=== PATIENT | male | born 1930 | race Caucasian/White ===

== ENCOUNTER 2017-01-23 05:56 | Inpatient (IN) | payer OTHER, BC ==
--- NOTE | 2017-01-23 06:42 | PDOC ---
History of Present Illness - General Chief Complaint: Shortness of Breath Stated Complaint: DIFFICULTY BREATHING Time Seen by Provider: 01/23/17 06:41 History Source: Patient Exam Limitations: No Limitations - History of Present Illness Initial Comments: 01/23/17 06:46 The patient is an 86 year old male with a significant past medical history of HTN, HLD, CAD, CHF, A.fib (on Eliquis), porcine aortic valve replacement and chronic LBBB, who presents to the emergency department with difficulty breathing for the past 2 days. He states that he has noticed orthopnea and dyspnea on exertion for the past 2 days. Last night, however, at 2 AM, he woke up with a feeling of pressure in his chest and dyspnea at rest. He denies accompanying nausea, palpitations, diaphoresis. The symptoms lasted for approximately 3 hours until EMS arrived and administered oxygen. He states that he feels completely asymptomatic at this point. He is noncompliant with his daily weights. He is fully compliant with his medications. He is fully compliant with his diet. He denies fever, chills, sweats, lower extremity edema. His primary care physician is Dr. Spears. He did not take his medications today. 01/23/17 06:57 01/23/17 07:06 Past History - Past Medical History Allergies/Adverse Reactions: Allergies Allergy/AdvReac Type Severity Reaction Status Date / Time carvedilol [From Coreg] Allergy Hives Verified 01/23/17 06:06 Home Medications: Ambulatory Orders Apixaban [Eliquis] 5 mg PO DAILY 01/20/16 Furosemide [Lasix -] 40 mg PO DAILY #30 tablet 01/23/16 Metoprolol Succinate [Toprol XL -] 12.5 mg PO DAILY #30 tab.sr.24h 02/07/16 Quinapril HCl [Accupril -] 20 mg PO DAILY #30 tablet 02/07/16 Cardiac Disorders: Yes HTN: Yes Hypercholesterolemia: Yes - Surgical History Cardiac Surgery: Yes (TRIPLE BYPASS, PIGS VALVE) - Immunization History Immunization Up to Date: Yes - Psycho/Social/Smoking Cessation Hx Anxiety: No Suicidal Ideation: No Smoking History: Never smoked Have you smoked in the past 12 months: No Cigars Per Day: 0 Information on smoking cessation initiated: No Hx Alcohol Use: No Drug/Substance Use Hx: No Substance Use Type: None Hx Substance Use Treatment: No Review of Systems - Review of Systems Comments:: 01/23/17 06:59 CONSTITUTIONAL: Present: Generalized weakness, malaise Absent: fever, chills, diaphoresis, loss of appetite HEENT: Absent: rhinorrhea, nasal congestion, throat pain, throat swelling, difficulty swallowing, mouth swelling, ear pain, eye pain, visual Changes CARDIOVASCULAR: Present: Chest pressure Absent: loss of consciousness, palpitations, irregular heart rate, peripheral edema RESPIRATORY: Present: cough, shortness of breath, dyspnea with exertion, orthopnea, Absent: wheezing, stridor, hemoptysis GASTROINTESTINAL: Absent: abdominal pain, abdominal distension, nausea, vomiting, diarrhea, constipation, melena, hematochezia GENITOURINARY: Absent: dysuria, frequency, urgency, hesitancy, hematuria, flank pain, genital pain MUSCULOSKELETAL: Absent: myalgia, arthralgia, joint swelling SKIN: Absent: rash, itching, pallor HEMATOLOGIC/IMMUNOLOGIC: Absent: easy bleeding, easy bruising, lymphadenopathy, frequent infections ENDOCRINE: Absent: unexplained weight gain, unexplained weight loss, heat intolerance, cold intolerance NEUROLOGIC: Absent: headache, focal weakness or paresthesias, dizziness, unsteady gait, seizure, mental status changes, bladder or bowel incontinence PSYCHIATRIC: Absent: anxiety, depression, suicidal or homicidal ideation, hallucinations. *Physical Exam - Vital Signs Last Vital Signs Temp Pulse Resp BP Pulse Ox 98.3 F 79 20 149/82 92 L 01/23/17 06:06 01/23/17 06:28 01/23/17 06:28 01/23/17 06:28 01/23/17 06:28 - Physical Exam Comments: 01/23/17 07:00 GENERAL: Well developed, well nourished. Awake and alert. No acute distress. HEENT: Normocephalic, atraumatic. PERRLA, EOMI. No conjunctival pallor. Sclera are non- icteric. Moist mucous membranes. Oropharynx is clear. NECK: Supple. Full ROM. No JVD. Carotid pulses 2+ and symmetric, without bruits. No thyromegaly. No lymphadenopathy. CARDIOVASCULAR: Distant heart sounds. Regular rate and rhythm. No murmurs, rubs, or gallops. Distal pulses are 2+ and symmetric. PULMONARY: Bibasilar crackles. No evidence of respiratory distress. No wheezing or rhonchi. ABDOMINAL: Soft. Non-tender. Non-distended. No rebound or guarding. No organomegaly. Normoactive bowel sounds. MUSCULOSKELETAL Normal range of motion at all joints. No bony deformities or tenderness. No CVA tenderness. EXTREMITIES: Trace pitting edema of the bilateral lower extremities No cyanosis. No clubbing. No edema. No calf tenderness. SKIN: Warm and dry. Normal capillary refill. No rashes. No jaundice. NEUROLOGICAL: Alert, awake, appropriate. Cranial nerves 2-12 intact. No deficits to light touch and temperature in face, upper extremities and lower extremities. No motor deficits in the in face, upper extremities and lower extremities. Normoreflexic in the upper and lower extremities. Normal speech. Toes are down- going bilaterally. Gait is normal without ataxia. PSYCHIATRIC: Cooperative. Good eye contact. Appropriate mood and affect. ED Treatment Course - LABORATORY CBC & Chemistry Diagram: 01/23/17 06:44 Medical Decision Making - Medical Decision Making 01/23/17 06:50 The patient is well-appearing and in no acute distress His symptoms of progressive dyspnea and an episode of dyspnea at rest accompaniend by chest pressure this morning are concerning for acute coronary syndrome Will obtain stat EKG Will obtain stat labs Will administer ASA 162mg 01/23/17 07:01 EKG: Normal sinus rhythm at 72, left axis deviation, left anterior hemiblock, left bundle branch block, inverted T waves in 1, aVL, V6, no Sgarboso criteria 01/23/17 07:08 Chest x-ray emergency Department interpretation: Increased interstitial markings bilaterally, potentially consistent with pulmonary vascular congestion There is some asymmetry, with the dentist area of infiltrate in the right lower lobe He denies fever I think pneumonia is unlikely Will administer IV Lasix Labs pending I anticipate admission 01/23/17 09:01 Labs noted CBC has not been developed I have asked the lab to develop it The patient feels better I spoke with his primary care physician, who requested admission to the hospitalist service Clinical impression: Acute exacerbation of congestive heart failure Chest pain, possible acute coronary syndrome Case discussed in detail with admitting provider including history, physical exam and ancillary studies. Admitting physician has assumed care for the patient, will follow all pending diagnostics and will complete the evaluation and treatment. 01/23/17 09:04 Chest x-ray official reading noted: We'll administer single dose of IV Levaquin *DC/Admit/Observation/Transfer Diagnosis at time of Disposition: Acute congestive heart failure, Chest pain - Discharge Dispostion Admit: Yes
[2017-01-23] MEDS ORDERED: SODIUM CHLORIDE 1,000 ML IV STA (06:44)
[2017-01-23] MEDS ORDERED: ASPIRIN 81 MG CHEWABLE TABLETS PO ONE (07:06)
[2017-01-23] MEDS ORDERED: FUROSEMIDE 40 MG/4 ML INJECTABLE VIAL IVPUSH ONE (07:06)
[2017-01-23 07:14] LABS: VENOUS BLOOD GAS HCO3 24.6 meq/L (19-25); VENOUS PH 7.42 (7.32-7.42)
[2017-01-23 07:41] LABS: ALBUMIN 3.7 g/dl (3.4-5.0); ANION GAP 8 (8-16); BILIRUBIN,TOTAL 1.9 mg/dL (0.2-1.0); CALCIUM 8.8 mg/dL (8.5-10.1); CO2 26 mmol/L (21-32); GLUCOSE,RANDOM 125 mg/dL (74-106); SGOT/AST 19 U/L (15-37); SGPT/ALT 15 U/L (12-78); TOT PROT 7.3 g/dl (6.4-8.2)
[2017-01-23 07:44] LABS: ALK PHOS 105 U/L (45-117); TROPONIN I 0.02 ng/ml (0.00-0.05)
[2017-01-23 08:28] LABS: INR 1.34 (0.82-1.09); PROTHROMBIN TIME (PATIENT) 14.8 SEC (9.98-11.88)
[2017-01-23 08:31] LABS: ACTIVATED PTT 31.7 SECONDS (26.9-34.4)
[2017-01-23] MEDS ORDERED: ASPIRIN 81 MG CHEWABLE TABLETS ONE (08:54)
[2017-01-23] MEDS ORDERED: FUROSEMIDE 40 MG/4 ML INJECTABLE VIAL ONE ×2 (08:54→16:23)
[2017-01-23 09:33] LABS: BASOPHIL 0.5 % (0-2.0); EOSINOPHIL 0.1 % (0-4.5); MCH 27.8 pg (25.7-33.7); MCHC 32.4 g/dl (32.0-35.9); MEAN CELL VOLUME 85.6 fl (80-96); MEAN PLT VOLUME 9.7 fl (7.5-11.1); NEUTROPHILS 88.7 % (42.8-82.8); PLATELET COUNT 118 K/MM3 (134-434); RDW 14.1 % (11.9-15.9); WHITE BLOOD COUNT 17.5 K/mm3 (4.0-10.0)
[2017-01-23] MEDS ORDERED: LEVOFLOXACIN 750 MG IVPB 150 ML IVPB ONE (09:43)
[2017-01-23 10:24] LABS: URINE APPEARANCE CLEAR; URINE BILIRUBIN NEGATIVE (NEGATIVE); URINE BLOOD NEGATIVE (NEGATIVE); URINE COLOR STRAW; URINE GLUCOSE (UA) NEGATIVE (NEGATIVE); URINE KETONE TRACE (NEGATIVE); URINE LEUK ESTERASE NEGATIVE (NEGATIVE); URINE NITRITE NEGATIVE (NEGATIVE); URINE PROTEIN NEGATIVE (NEGATIVE); URINE UROBILINOGEN NEGATIVE E.U./dl (0.2-1.0)
[2017-01-23] MEDS ORDERED: AZITHROMYCIN IVPB 500 MG in DEXTROSE 5%-WATER - 250 ML IVPB SCH (12:00)
[2017-01-23] MEDS ORDERED: CEFTRIAXONE 1 GM in DEXTROSE 5%-WATER - 50 ML IVPB SCH (12:00)
[2017-01-23 12:05] VITALS: BMI 32.1
[2017-01-23] MEDS ORDERED: CEFTRIAXONE 50 ML ONE (12:13)
[2017-01-23] MEDS ORDERED: AZITHROMYCIN IVPB 250 ML IVPB ONE (12:13)
--- NOTE | 2017-01-23 12:17 | HP ---
CHIEF COMPLAINT: I wake up at night coughing and SOB. PCP: Dr. Spears Parachute Officer: Dr. Simba Frey ISTORY OF PRESENT ILLNESS: The patient is an 86 year-old male with a significant PMH of HTN, HLD, diastolic heart failure, afib on Eliquis, tissue AVR (7-8 years ago, [facility] ) and chronic LBBB, who presented to the ED today with difficulty breathing at night x 1- 2 days. He reports to this provider he has awoken at night with a dry cough and a feeling of SOB. He denies [place], chest pain, pressure, or palpitations to this provider. He does endorse mild b/l lower extremity edema. He states he weighs himself daily and his weight has not deviated from 210-211 pounds. He states he is compliant with his medications. He exercises daily. He denies fever, sweats, chills. He denies n/v/d/c. Recent Travel: none PAST MEDICAL HISTORY: Hypertension Hyperlipidemia Coronary artery disease Heart failure Atrial fibrillation PAST SURGICAL HISTORY: Tissue aortic valve replacement (7-8 years ago, [facility]) Social History: Smoking: quit 1963 Alcohol: no Drugs: no Family History: Mother and father years ago in [place], cannot recall ages; mother of leukemia, father of "hard work"; children a&w Allergies Carvedilol [From Coreg] Allergy (Verified 01/23/17 06:06) Hives HOME MEDICATIONS: Medication Instructions Recorded Apixaban [Eliquis] 5 mg PO DAILY 01/20/16 Furosemide [Lasix -] 40 mg PO DAILY #30 tablet 01/23/16 Metoprolol Succinate [Toprol XL -] 12.5 mg PO DAILY #30 tab.sr.24h 02/07/16 Quinapril HCl [Accupril -] 20 mg PO DAILY #30 tablet 02/07/16 REVIEW OF SYSTEMS CONSTITUTIONAL: Absent: fever, chills, diaphoresis, generalized weakness, malaise, loss of appetite, weight change HEENT: Absent: rhinorrhea, nasal congestion, throat pain, throat swelling, difficulty swallowing, mouth swelling, ear pain, eye pain, visual changes CARDIOVASCULAR: Absent: chest pain, syncope, palpitations, irregular heart rate, lightheadedness , peripheral edema RESPIRATORY: Present: cough, SOB, orthopnea Absent: dyspnea with exertion, wheezing, stridor, hemoptysis GASTROINTESTINAL: Absent: abdominal pain, abdominal distension, nausea, vomiting, diarrhea, constipation, melena, hematochezia GENITOURINARY: Absent: dysuria, frequency, urgency, hesitancy, hematuria, flank pain, genital pain MUSCULOSKELETAL: Absent: myalgia, arthralgia, joint swelling, back pain, neck pain SKIN: Absent: rash, itching, pallor HEMATOLOGIC/IMMUNOLOGIC: Absent: easy bleeding, easy bruising, lymphadenopathy, frequent infections ENDOCRINE: Absent: unexplained weight gain, unexplained weight loss, heat intolerance, cold intolerance NEUROLOGIC: Absent: headache, focal weakness or paresthesias, dizziness, unsteady gait, seizure, mental status changes, bladder or bowel incontinence PSYCHIATRIC: Absent: anxiety, depression, suicidal or homicidal ideation, hallucinations. PHYSICAL EXAMINATION Vital Signs - 24 hr 01/23/17 01/23/17 09:51 11:55 Temperature 98 F 98.5 F Pulse Rate 83 Pulse Rate [ 68 Right] Respiratory 20 Rate Blood Pressure 130/70 Blood Pressure 141/80 [Left Arm] O2 Sat by Pulse 98 95 Oximetry (%) GENERAL: Awake, alert, and fully oriented, in no acute distress. HEAD: Normal with no signs of trauma. EYES: Pupils equal, round and reactive to light, extraocular movements intact, sclera anicteric, conjunctiva clear. No lid lag. EARS, NOSE, THROAT: Ears normal, nares patent, oropharynx clear without exudates. Moist mucous membranes. NECK: Normal range of motion, supple without lymphadenopathy, JVD, or masses. LUNGS: Breath sounds equal, clear to auscultation bilaterally. No wheezes, and no crackles. No accessory muscle use. HEART: Irregular, S1, S2, +murmur, no rub, no gallop ABDOMEN: Soft, nontender, not distended, normoactive bowel sounds, no guarding, no rebound, no masses. No hepatomegaly or splenomegaly. MUSCULOSKELETAL: Normal range of motion at all joints. No bony deformities or tenderness. No CVA tenderness. UPPER EXTREMITIES: 2+ pulses, warm, well-perfused. No cyanosis. No clubbing. No peripheral edema. LOWER EXTREMITIES: 2+ pulses, warm, well-perfused. No calf tenderness. Trace b/ l edema. NEUROLOGICAL: Cranial nerves II-XII intact. Normal speech. Normal gait. PSYCHIATRIC: Cooperative. Good eye contact. Appropriate mood and affect. Laboratory Results - last 24 hr 01/23/17 01/23/17 01/23/17 09:28 09:48 09:48 WBC 17.5 H D RBC 5.08 Hgb 14.1 Hct 43.5 MCV 85.6 MCHC 32.4 RDW 14.1 Plt Count 118 L D MPV 9.7 Neutrophils % 88.7 H D Lymphocytes % 3.3 L D Monocytes % 7.4 Eosinophils % 0.1 D Basophils % 0.5 INR 1.34 H PTT (Actin FS) 31.7 Lactic Acid 1.402 ASSESSMENT/PLAN: 86 year-old male with a significant PMH of HTN, HLD, CAD s/p PR s/p CABG, diastolic HF, permanent afib on Eliquis, tissue AVR (7-8 years ago, [facility]) and chronic LBBB, admitted for acute on chronic diastolic heart failure and community-acquired pneumonia. Acute on chronic diastolic heart failure --01/23 Echo: LV function mildly reduced EF 39%, cannot exclude RWMA; RV normal; LA severely dilated; bioprosthetic aortic valve well-seated, gradient elevated but without change since 01/2016; moderate aortic root dilitation --Lasix IV 40 BID Community acquired pneumonia --01/23 CXR: segmental RLL consolidation --afebrile, WBC 17.5k --start ceftriaxone and azithromycin Hypertension --BP stable, continue metoprolol, quinapril Hyperlipidemia --continue Lipitor Coronary artery disease --continue metoprolol, Lipitor Permanent afib --rate well-controlled --continue metoprolol --continue Eliquis F/E/N Fluids: PO intake adequate Electrolytes: replete as indicated Nutrition: low sodium diet DVT prophylaxis: on Eliquis; oob, ambulation PT evaluation Dispo: continues to require inpatient care. Full Code. Visit type - Emergency Visit Emergency Visit: Yes ED Registration Date: 01/23/17 Care time: The patient presented to the Emergency Department on the above date and was hospitalized for further evaluation of their emergent condition. - New Patient This patient is new to me today: Yes Date on this admission: 01/24/17 - Critical Care Critical Care patient: No
--- NOTE | 2017-01-23 12:30 | CON.CARD ---
Consult Consult Specialty:: Cardiology Referred by:: Hospitalist Medicine Reason for Consultation:: Dyspnea - History of Present Illness Chief Complaint: Dyspnea History of Present Illness: The patient is an 86 yo WM h/o CAD s/p MN and CABG x 2, bioprosthetic (porcine) AV replacement, persistent atrial fibrillation on NOAC, HTN, chol, previous hospitalization for diastolic failure, carvedilol intolerance (hives), chronic LBBB who presented to the emergency department with shortness of breath on exertion and orthopnea over last 2 days, episode of chest tightness and dyspnea at rest. He denied near or true syncope, palpitations, PND, LE edema, cough, fevers or chills, admitted for suspected hypoxic respiratory failure referable to acute on chronic diastolic heart failure +/- RLL PNA. Allergies: carvedilol-hives PCP - Dr. Melvi Guy High Risk Case Manager: Dr. Frey - History Source History Provided By: Patient Limitations to Obtaining History: No Limitations - Past Medical History Cardio/Vascular: Yes: AFIB, CAD, CHF, HTN, MN - Past Surgical History Past Surgical History: Yes: CABG, Valve Replacement - Alcohol/Substance Use Hx Alcohol Use: No - Smoking History Smoking history: Former smoker Have you smoked in the past 12 months: No If you are a former smoker, when did you quit?: 1964 Home Medications - Allergies Allergies/Adverse Reactions: Allergies Allergy/AdvReac Type Severity Reaction Status Date / Time carvedilol [From Coreg] Allergy Hives Verified 01/23/17 06:06 - Home Medications Home Medications: Ambulatory Orders Apixaban [Eliquis] 5 mg PO DAILY 01/20/16 Furosemide [Lasix -] 40 mg PO DAILY #30 tablet 01/23/16 Metoprolol Succinate [Toprol XL -] 12.5 mg PO DAILY #30 tab.sr.24h 02/07/16 Quinapril HCl [Accupril -] 20 mg PO DAILY #30 tablet 02/07/16 Review of Systems - Review of Systems Cardiovascular: reports: Chest Pain, Shortness of Breath Respiratory: reports: Exercise Intolerance, SOB on Exertion Vital Signs: Vital Signs Temperature 98.5 F 01/23/17 11:55 Pulse Rate 83 01/23/17 11:55 Respiratory Rate 20 01/23/17 11:55 Blood Pressure 130/70 01/23/17 11:55 O2 Sat by Pulse Oximetry (%) 95 01/23/17 11:55 Constitutional: Yes: No Distress, Calm Neck: Yes: Supple Respiratory: Yes: Regular, Diminished, On Nasal O2 Gastrointestinal: Yes: Normal Bowel Sounds, Soft Cardiovascular: Yes: Pulse Irregular JVD: No Carotid Bruit: No Heart Sounds: Yes: S1, S2 Murmur: Yes: Systolic Murmur, Grade 2 Edema: No - Other Data Labs, Other Data: CBC, BMP 01/23/17 09:28 INR, PTT INR 1.34 (0.82-1.09) H 01/23/17 09:48 Afib @ 73 LBBB Prior Cardiac Procedures: CABG, Valve Surgery Ejection Fraction %: LVEF > or = 40 % Problem List - Problems (1) Chest pain Code(s): R07.9 - CHEST PAIN, UNSPECIFIED Qualifiers: Chest pain type: unspecified Qualified Code(s): R07.9 - Chest pain, unspecified (2) Acute respiratory failure with hypoxia Code(s): J96.01 - ACUTE RESPIRATORY FAILURE WITH HYPOXIA (3) Atrial fibrillation Code(s): I48.91 - UNSPECIFIED ATRIAL FIBRILLATION Qualifiers: Atrial fibrillation type: persistent Qualified Code(s): I48.1 - Persistent atrial fibrillation (4) Coronary artery disease Code(s): I25.10 - ATHSCL HEART DISEASE OF [place] CORONARY ARTERY W/O ANG PCTRS Qualifiers: Coronary Disease-Associated Artery/Lesion type: [place] artery [place] vs. transplanted heart: [place] heart Associated angina: without angina Qualified Code(s): I25.10 - Atherosclerotic heart disease of [place] coronary artery without angina pectoris (5) H/O myocardial infarction, greater than 8 weeks Code(s): I25.2 - OLD MYOCARDIAL INFARCTION (6) Hyperlipidemia Code(s): E78.5 - HYPERLIPIDEMIA, UNSPECIFIED Qualifiers: Hyperlipidemia type: pure hypercholesterolemia Qualified Code(s): E78.00 - Pure hypercholesterolemia, unspecified; E78.0 - Pure hypercholesterolemia (7) Hypertensive cardiovascular disease Code(s): I11.9 - HYPERTENSIVE HEART DISEASE WITHOUT HEART FAILURE Qualifiers: Heart failure presence: with heart failure Qualified Code(s): I11.0 - Hypertensive heart disease with heart failure (8) S/P CABG x 2 Code(s): Z95.1 - PRESENCE OF AORTOCORONARY BYPASS GRAFT (9) S/P aortic valve replacement with bioprosthetic valve Code(s): Z95.4 - PRESENCE OF OTHER HEART-VALVE REPLACEMENT (10) Shortness of breath Code(s): R06.02 - SHORTNESS OF BREATH (11) Acute on chronic diastolic (congestive) heart failure Code(s): I50.33 - ACUTE ON CHRONIC DIASTOLIC (CONGESTIVE) HEART FAILURE (12) Left bundle branch block Code(s): I44.7 - LEFT BUNDLE-BRANCH BLOCK, UNSPECIFIED Assessment/Plan Echocardiography performed 01/22/2016 revealed mildly reduced LV function, LA dilatation, moderate MR, [id number] with trans valvular gradient as noted and calculated AV area of 0.72 cm2, mild TR with mild degree of pulmonary HTN 1. Acute hypoxic respiratory failure referable to 2. Acute on chronic LV systolic/diastolic failure, class II NYHA classification LV failure 3. 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 CAD post MN/CABG angina pectoris 5. Persistent AF with periods of slow ventricular response asymptomatic on NOAC' s, off label use (presence of AVR) 6. HTN/HCVD 7. Hyperlipidemia 8. RLL infiltrate not c/w RLL PNA PLAN: 1. Empiric antibiotics as per the primary team 2. IV diuresis with monitor diuretic response, renal fxn and electrolytes 3. Continue Eliquis 5 bid 4. Continue Accupril 20 qd 5. Continue Toprol 25 qd 6. Resume Lipitor 10 qhs 7. F/u repeat echocardiogram 8. Thank you for consultative opportunity, eventual f/u with his management architect Dr. Star Frey upon d/c
--- NOTE | 2017-01-23 13:47 | EKG ---
Test Reason : Blood Pressure : / mmHG Vent. Rate : 071 BPM Atrial Rate : 071 BPM P-R Int : 000 ms QRS Dur : 158 ms QT Int : 412 ms P-R-T Axes : 000 -15 165 degrees QTc Int : 447 ms ATRIAL FIBRILLATION LEFT BUNDLE BRANCH BLOCK ABNORMAL ECG Confirmed by ZHANG BAUTISTA MD ([id number]) on 01/23/2017 1:47:04 PM Referred By: Confirmed By:ZHANG BAUTISTA MD
[2017-01-23] MEDS ORDERED: QUINAPRIL HCL 10 MG TABLET (FP) ONE (16:19)
[2017-01-23] MEDS: QUINAPRIL HCL 20 MG TABLET (FP) PO SCH (16:20)
[2017-01-23] MEDS: FUROSEMIDE 40 MG/4 ML INJECTABLE VIAL IVPUSH SCH (16:32)
[2017-01-23] MEDS: APIXABAN 5 MG TABLET PO SCH (22:50)
[2017-01-23] MEDS: ATORVASTATIN CA 10 MG TABLET (FP) PO SCH (22:50)
[2017-01-24] MEDS: FUROSEMIDE 40 MG/4 ML INJECTABLE VIAL IVPUSH SCH ×2 (06:05→13:39)
[2017-01-24 07:03] LABS: BASOPHIL 0.4 % (0-2.0); EOSINOPHIL 1.4 % (0-4.5); MCH 28.1 pg (25.7-33.7); MCHC 33.1 g/dl (32.0-35.9); MEAN CELL VOLUME 85.1 fl (80-96); MEAN PLT VOLUME 9.9 fl (7.5-11.1); NEUTROPHILS 80.6 % (42.8-82.8); PLATELET COUNT 116 K/MM3 (134-434); RDW 14.2 % (11.9-15.9); WHITE BLOOD COUNT 13.2 K/mm3 (4.0-10.0)
[2017-01-24 07:39] LABS: ALBUMIN 3.7 g/dl (3.4-5.0); ANION GAP 13 (8-16); CALCIUM 9.1 mg/dL (8.5-10.1); CO2 26 mmol/L (21-32); GLUCOSE,RANDOM 97 mg/dL (74-106); MAGNESIUM 2.1 mg/dL (1.8-2.4)
[2017-01-24 07:44] LABS: ALK PHOS 104 U/L (45-117); COCKROFT - GAULT 65.68; CREATININE 1.1 mg/dL (0.7-1.3); SGOT/AST 16 U/L (15-37); SGPT/ALT 13 U/L (12-78); TOT PROT 7.4 g/dl (6.4-8.2)
[2017-01-24] MEDS: APIXABAN 5 MG TABLET PO SCH ×2 (09:16→21:39)
[2017-01-24] MEDS: QUINAPRIL HCL 20 MG TABLET (FP) PO SCH (09:16)
[2017-01-24] MEDS: CEFTRIAXONE 50 ML IVPB SCH (09:16)
[2017-01-24] MEDS: METOPROLOL SUCCINATE 25 MG TAB.SR.24H (FP) PO SCH (09:16)
[2017-01-24] MEDS: AZITHROMYCIN IVPB 250 ML IVPB SCH (09:17)
--- NOTE | 2017-01-24 10:35 | PN ---
Progress Note (short form) - Note Progress Note: S: 86 year old male, history of coronary artery disease s/p myocardial infarction, s/p CABG, s/p bioprothetic, aortic valve replacement, permanent atrial fibrillation. History of congestive heart failure, hypertension, hypertensive cardiovascular disease. Was admitted with progressive dyspnea, episode of chest pain and possible right lower lobe consolidation suggesting a pneumonic process. Patient has no dyspnea, PND or orthopnea, no cough or expectoration was reported , no palpitations, lightheadedness or dizziness. On admission had low grade temperature presently patient has low grade fever. Blood cultures on 2 occasions have been negative. Active Medications Generic Name Dose Route Start Last Admin Trade Name Freq PRN Reason Stop Dose Admin Apixaban 5 mg 01/23/17 22:00 01/24/17 09:16 Eliquis - PO 5 mg BID RAFA Administration Atorvastatin Calcium 10 mg 01/23/17 22:00 01/23/17 22:50 Lipitor - PO 10 mg HS RAFA Administration Furosemide 40 mg 01/23/17 14:00 01/24/17 06:05 Lasix Injection - IVPUSH 40 mg BID@0600,1400 RAFA Administration Azithromycin 250 mls @ 250 mls/hr 01/23/17 13:09 01/24/17 09:17 Zithromax 500mg Ivpb (Pre-Docked) IVPB 250 mls/hr DAILY RAFA Administration Ceftriaxone Sodium 50 mls @ 100 mls/hr 01/23/17 13:10 01/24/17 09:16 Rocephin 1gm Ivpb (Pre-Docked) IVPB 100 mls/hr DAILY RAFA Administration Metoprolol Succinate 25 mg 01/24/17 10:00 01/24/17 09:16 Toprol Xl - PO 25 mg DAILY RAFA Administration Quinapril HCl 20 mg 01/23/17 13:00 01/24/17 09:16 Accupril - PO 20 mg DAILY RAFA Administration O: 86 year old male was in no acute distress, no pallor, cyanosis, clubbing, or jaundice. Last Vital Signs Temp Pulse Resp BP Pulse Ox 98.4 F 92 Irregular 16 140/86 95 01/24/17 08:00 01/24/17 08:00 01/24/17 08:00 01/24/17 08:00 01/23/17 21:00 Neck: Supple, no JVD, negative HJR, carotids were equal and upstrokes were normal, no thyromegaly appreciated. Heart: PMI was in the 5th intercostal space, no heaves or thrills, S1 variable and S2 was normal. Grade I/ ejection systolic murmur at the second right intercoastal space. No gallops were appreciated. Lungs: Clear on auscultation bilaterally. Abdomen: Soft, nontender, no hepatosplenomegaly appreciated, and no palpable masses were felt. Extremities: No calf tenderness or dependent edema. Pulses are normal. CBC, BMP 01/24/17 05:35 01/24/17 05:35 Laboratory Results - last 24 hr 01/23/17 01/23/17 01/23/17 09:48 09:48 10:15 WBC RBC Hgb Hct MCV MCHC RDW Plt Count MPV Neutrophils % Lymphocytes % Monocytes % Eosinophils % Basophils % INR 1.34 H PTT (Actin FS) 31.7 Sodium Potassium Chloride Carbon Dioxide Anion Gap BUN Creatinine Creat Clearance w eGFR Random Glucose Lactic Acid 1.402 Calcium Phosphorus Magnesium Total Bilirubin AST ALT Alkaline Phosphatase Troponin I Total Protein Albumin Urine Color Straw Urine Appearance Clear Urine pH 6.0 Urine Protein Negative Urine Glucose (UA) Negative Urine Ketones Trace H Urine Blood Negative Urine Nitrite Negative Urine Bilirubin Negative Urine Urobilinogen Negative Ur Leukocyte Esterase Negative 01/23/17 01/23/17 01/24/17 13:06 19:00 05:35 WBC 13.2 H RBC 5.05 Hgb 14.2 Hct 42.9 MCV 85.1 MCHC 33.1 RDW 14.2 Plt Count 116 L MPV 9.9 Neutrophils % 80.6 Lymphocytes % 8.8 D Monocytes % 8.8 Eosinophils % 1.4 D Basophils % 0.4 INR PTT (Actin FS) Sodium Potassium Chloride Carbon Dioxide Anion Gap BUN Creatinine Creat Clearance w eGFR Random Glucose Lactic Acid Calcium Phosphorus Magnesium Total Bilirubin AST ALT Alkaline Phosphatase Troponin I 0.03 D 0.03 Total Protein Albumin Urine Color Urine Appearance Urine pH Urine Protein Urine Glucose (UA) Urine Ketones Urine Blood Urine Nitrite Urine Bilirubin Urine Urobilinogen Ur Leukocyte Esterase 01/24/17 05:35 WBC RBC Hgb Hct MCV MCHC RDW Plt Count MPV Neutrophils % Lymphocytes % Monocytes % Eosinophils % Basophils % INR PTT (Actin FS) Sodium 140 Potassium 3.8 Chloride 101 Carbon Dioxide 26 Anion Gap 13 BUN 14 Creatinine 1.1 Creat Clearance w eGFR > 60 Random Glucose 97 D Lactic Acid Calcium 9.1 Phosphorus 2.0 L Magnesium 2.1 Total Bilirubin 3.0 H D AST 16 ALT 13 Alkaline Phosphatase 104 Troponin I Total Protein 7.4 Albumin 3.7 Urine Color Urine Appearance Urine pH Urine Protein Urine Glucose (UA) Urine Ketones Urine Blood Urine Nitrite Urine Bilirubin Urine Urobilinogen Ur Leukocyte Esterase Echocardiogram: (01/23/2017) The study was technically difficult. The left ventricule is mildly dilated. Left ventricular systolic function is mildly reduced. Regional wall motion abnormalities cannot be excluded due to limited visualization. The right ventricle is normal in size and function. The left atrium is severely dilated. Bioprosthetic aortic valve present and seated well. Gradients are elevated for bio AVR but without significant change from 01/2016 echo report. Moderate aortic root dilatation. Impression: (1) Chest pain syndrome, probably related to angina pectoris. Code(s): R07.9 - CHEST PAIN, UNSPECIFIED Qualifiers: Chest pain type: unspecified Qualified Code(s): R07.9 - Chest pain, unspecified (2) Pneumonia (right lower lobe) Code(s): J96.01 - ACUTE RESPIRATORY FAILURE WITH HYPOXIA (3) Atrial fibrillation Code(s): I48.91 - UNSPECIFIED ATRIAL FIBRILLATION Qualifiers: Atrial fibrillation type: persistent Qualified Code(s): I48.1 - Persistent atrial fibrillation (4) Coronary artery disease Code(s): I25.10 - ATHSCL HEART DISEASE OF [place] CORONARY ARTERY W/O ANG PCTRS Qualifiers: Coronary Disease-Associated Artery/Lesion type: [place] artery [place] vs. transplanted heart: [place] heart Associated angina: without angina Qualified Code(s): I25.10 - Atherosclerotic heart disease of [place] coronary artery without angina pectoris (5) H/O myocardial infarction, greater than 8 weeks Code(s): I25.2 - OLD MYOCARDIAL INFARCTION (6) Hyperlipidemia Code(s): E78.5 - HYPERLIPIDEMIA, UNSPECIFIED Qualifiers: Hyperlipidemia type: pure hypercholesterolemia Qualified Code(s): E78.00 - Pure hypercholesterolemia, unspecified; E78.0 - Pure hypercholesterolemia (7) Hypertensive cardiovascular disease Code(s): I11.9 - HYPERTENSIVE HEART DISEASE WITHOUT HEART FAILURE Qualifiers: Heart failure presence: with heart failure Qualified Code(s): I11.0 - Hypertensive heart disease with heart failure (8) S/P CABG x 2 Code(s): Z95.1 - PRESENCE OF AORTOCORONARY BYPASS GRAFT (9) S/P aortic valve replacement with bioprosthetic valve Code(s): Z95.4 - PRESENCE OF OTHER HEART-VALVE REPLACEMENT (10) Shortness of breath Code(s): R06.02 - SHORTNESS OF BREATH (11) Acute on chronic diastolic (congestive) heart failure Code(s): I50.33 - ACUTE ON CHRONIC DIASTOLIC (CONGESTIVE) HEART FAILURE (12) Left bundle branch block Code(s): I44.7 - LEFT BUNDLE-BRANCH BLOCK, UNSPECIFIED Recommendations: 1. Continue current medications. 2. Counseled regarding dietary restrictions, especially curtailing salt intake. 3. Increase ambulation. Attestation: Documentation prepared by Chad Almonte, acting as medical lab technician for Erick Beaulieu MD.
[2017-01-24 11:03] LABS: CHOLESTEROL 161 mg/dL (50-200); CHOLESTEROL 166 mg/dL (50-200); LDL CHOLESTEROL (ONLY SJRH) 89 mg/dL (5-100); LDL CHOLESTEROL (ONLY SJRH) 91 mg/dL (5-100)
--- NOTE | 2017-01-24 13:55 | PN ---
Physical Exam: SUBJECTIVE: Patient seen and examined at bedside. and daughter present. OBJECTIVE: Vital Signs Period Temp Pulse Resp BP Sys/Ortega Pulse Ox Last 24 Hr 98 F-99.1 F 62-92 16-20 114-148/60-93 94-96 GENERAL: The patient is awake, alert, and fully oriented, in no acute distress. HEAD: Normal with no signs of trauma. EYES: PERRL, extraocular movements intact, sclera anicteric, conjunctiva clear. No ptosis. ENT: Ears normal, nares patent, oropharynx clear without exudates, moist mucous membranes. NECK: Trachea midline, full range of motion, supple. LUNGS: Breath sounds equal, clear to auscultation bilaterally, no wheezes, no crackles, no accessory muscle use. HEART: Regular rate and rhythm, S1, S2 without murmur, rub or gallop. ABDOMEN: Soft, nontender, nondistended, normoactive bowel sounds, no guarding, no rebound, no hepatosplenomegaly, no masses. EXTREMITIES: 2+ pulses, warm, well-perfused, no edema. NEUROLOGICAL: Cranial nerves II through XII grossly intact. Normal speech, gait not observed. PSYCH: Normal mood, normal affect. SKIN: Warm, dry, normal turgor, no rashes or lesions noted Laboratory Results - last 24 hr 01/23/17 01/23/17 01/23/17 10:15 13:06 19:00 WBC RBC Hgb Hct MCV MCHC RDW Plt Count MPV Neutrophils % Lymphocytes % Monocytes % Eosinophils % Basophils % Sodium Potassium Chloride Carbon Dioxide Anion Gap BUN Creatinine Creat Clearance w eGFR Random Glucose Calcium Phosphorus Magnesium Total Bilirubin AST ALT Alkaline Phosphatase Troponin I 0.03 D 0.03 B-Natriuretic Peptide Total Protein Albumin Triglycerides Cholesterol Total LDL Cholesterol HDL Cholesterol TSH Ur Specific [place] 1.010 01/24/17 01/24/17 01/24/17 05:35 05:35 05:35 WBC 13.2 H RBC 5.05 Hgb 14.2 Hct 42.9 MCV 85.1 MCHC 33.1 RDW 14.2 Plt Count 116 L MPV 9.9 Neutrophils % 80.6 Lymphocytes % 8.8 D Monocytes % 8.8 Eosinophils % 1.4 D Basophils % 0.4 Sodium 140 Potassium 3.8 Chloride 101 Carbon Dioxide 26 Anion Gap 13 BUN 14 Creatinine 1.1 Creat Clearance w eGFR > 60 Random Glucose 97 D Calcium 9.1 Phosphorus 2.0 L Magnesium 2.1 Total Bilirubin 3.0 H D AST 16 ALT 13 Alkaline Phosphatase 104 Troponin I B-Natriuretic Peptide 1774.81 H Cancelled Total Protein 7.4 Albumin 3.7 Triglycerides 56 Cholesterol 166 Total LDL Cholesterol 91 HDL Cholesterol 74 H TSH 0.30 L D Cancelled Ur Specific [place] 01/24/17 05:35 WBC RBC Hgb Hct MCV MCHC RDW Plt Count MPV Neutrophils % Lymphocytes % Monocytes % Eosinophils % Basophils % Sodium Potassium Chloride Carbon Dioxide Anion Gap BUN Creatinine Creat Clearance w eGFR Random Glucose Calcium Phosphorus Magnesium Total Bilirubin AST ALT Alkaline Phosphatase Troponin I B-Natriuretic Peptide Total Protein Albumin Triglycerides 57 Cholesterol 161 Total LDL Cholesterol 89 HDL Cholesterol 74 TSH Ur Specific [place] Active Medications Generic Name Dose Route Start Last Admin Trade Name Freq PRN Reason Stop Dose Admin Apixaban 5 mg 01/23/17 22:00 01/24/17 09:16 Eliquis - PO 5 mg BID RAFA Administration Atorvastatin Calcium 10 mg 01/23/17 22:00 01/23/17 22:50 Lipitor - PO 10 mg HS RAFA Administration Furosemide 40 mg 01/23/17 14:00 01/24/17 13:39 Lasix Injection - IVPUSH 40 mg BID@0600,1400 RAFA Administration Azithromycin 250 mls @ 250 mls/hr 01/23/17 13:09 01/24/17 09:17 Zithromax 500mg Ivpb (Pre-Docked) IVPB 250 mls/hr DAILY RAFA Administration Ceftriaxone Sodium 50 mls @ 100 mls/hr 01/23/17 13:10 01/24/17 09:16 Rocephin 1gm Ivpb (Pre-Docked) IVPB 100 mls/hr DAILY RAFA Administration Metoprolol Succinate 25 mg 01/24/17 10:00 01/24/17 09:16 Toprol Xl - PO 25 mg DAILY RAFA Administration Quinapril HCl 20 mg 01/23/17 13:00 01/24/17 09:16 Accupril - PO 20 mg DAILY RAFA Administration ASSESSMENT/PLAN: 86 year-old male with a significant PMH of HTN, HLD, CAD s/p MT s/p CABG, diastolic HF, permanent afib on Eliquis, tissue AVR (7-8 years ago, [facility]) and chronic LBBB, admitted for acute on chronic diastolic heart failure and community-acquired pneumonia. Acute on chronic diastolic heart failure --01/23 Echo: LV function mildly reduced EF 39%, cannot exclude RWMA; RV normal; LA severely dilated; bioprosthetic aortic valve well-seated, gradient elevated but without change since 01/2016; moderate aortic root dilitation --Lasix IV 40 BID Community acquired pneumonia --01/23 CXR: segmental RLL consolidation --afebrile, WBC trending down 17.5-->13.2k --continue ceftriaxone (day #2) and azithromycin (day #2) Hypertension --BP stable, continue metoprolol, quinapril Hyperlipidemia --continue Lipitor Coronary artery disease --continue metoprolol, Lipitor Permanent afib --rate well-controlled --continue metoprolol --continue Eliquis F/E/N Fluids: PO intake adequate Electrolytes: replete as indicated Nutrition: low sodium diet DVT prophylaxis: on Eliquis; oob, ambulation PT evaluation Dispo: continues to require inpatient care. Full Code. Visit type - Emergency Visit Emergency Visit: Yes ED Registration Date: 01/23/17 Care time: The patient presented to the Emergency Department on the above date and was hospitalized for further evaluation of their emergent condition. - New Patient This patient is new to me today: No - Critical Care Critical Care patient: No
--- NOTE | 2017-01-24 16:14 | EKG ---
Test Reason : Blood Pressure : / mmHG Vent. Rate : 069 BPM Atrial Rate : 084 BPM P-R Int : 000 ms QRS Dur : 170 ms QT Int : 422 ms P-R-T Axes : 000 -08 186 degrees QTc Int : 452 ms ATRIAL FIBRILLATION WITH PREMATURE VENTRICULAR OR ABERRANTLY CONDUCTED COMPLEXES LEFT BUNDLE BRANCH BLOCK ABNORMAL ECG WHEN COMPARED WITH ECG OF 23-JAN-2017 06:57, NO SIGNIFICANT CHANGE WAS FOUND Confirmed by BJ JEAN, ESPINOZA ([id number]) on 01/24/2017 4:13:55 PM Referred By: MEGHAN OLIVARES Confirmed By:ESPINOZA LORENZO MD
[2017-01-24] MEDS: ATORVASTATIN CA 10 MG TABLET (FP) PO SCH (21:39)
[2017-01-25] MEDS: FUROSEMIDE 40 MG/4 ML INJECTABLE VIAL IVPUSH SCH (06:26)
[2017-01-25 07:39] LABS: BASOPHIL 0.7 % (0-2.0); EOSINOPHIL 4.5 % (0-4.5); MCH 28.4 pg (25.7-33.7); MCHC 33.7 g/dl (32.0-35.9); MEAN CELL VOLUME 84.1 fl (80-96); MEAN PLT VOLUME 9.7 fl (7.5-11.1); NEUTROPHILS 71.3 % (42.8-82.8); PLATELET COUNT 110 K/MM3 (134-434); WHITE BLOOD COUNT 8.4 K/mm3 (4.0-10.0)
[2017-01-25] MEDS: AZITHROMYCIN IVPB 250 ML IVPB SCH ×2 (08:30→09:33)
[2017-01-25] MEDS: APIXABAN 5 MG TABLET PO SCH ×2 (08:30→09:32)
[2017-01-25] MEDS: QUINAPRIL HCL 20 MG TABLET (FP) PO SCH ×2 (08:30→09:32)
[2017-01-25] MEDS: CEFTRIAXONE 50 ML IVPB SCH ×2 (08:30→09:32)
[2017-01-25] MEDS: METOPROLOL SUCCINATE 25 MG TAB.SR.24H (FP) PO SCH ×2 (08:30→09:32)
[2017-01-25 08:41] LABS: ALBUMIN 3.7 g/dl (3.4-5.0); BILIRUBIN,TOTAL 2.3 mg/dL (0.2-1.0); COCKROFT - GAULT 59.7; CREATININE 1.2 mg/dL (0.7-1.3); MAGNESIUM 2.2 mg/dL (1.8-2.4); TOT PROT 7.2 g/dl (6.4-8.2)
[2017-01-25 09:01] LABS: PHOSPHOROUS 2.7 mg/dL (2.5-4.9)
[2017-01-25] MEDS ORDERED: PT OWN MED DRAWER 7, Y5N ONE (09:31)
--- NOTE | 2017-01-25 11:23 | DS ---
Physical Examination Vital Signs: Vital Signs Temperature 97.8 F 01/25/17 06:00 Pulse Rate 55 L 01/25/17 06:00 Respiratory Rate 20 01/25/17 06:00 Blood Pressure 138/80 01/25/17 06:00 O2 Sat by Pulse Oximetry (%) 95 01/24/17 21:00 Findings/Remarks: GENERAL: Awake, alert, and fully oriented, in no acute distress. LUNGS: Breath sounds equal, clear to auscultation bilaterally. No wheezes, and no crackles. No accessory muscle use. HEART: Irregular, S1, S2, +murmur, no rub, no gallop ABDOMEN: Soft, nontender, not distended, normoactive bowel sounds, no guarding, no rebound, no masses. No hepatomegaly or splenomegaly. MUSCULOSKELETAL: Normal range of motion at all joints. No bony deformities or tenderness. No CVA tenderness. UPPER EXTREMITIES: 2+ pulses, warm, well-perfused. No cyanosis. No clubbing. No peripheral edema. LOWER EXTREMITIES: 2+ pulses, warm, well-perfused. No calf tenderness. Trace b/ l edema. NEUROLOGICAL: Cranial nerves II-XII intact. Normal speech PSYCHIATRIC: Cooperative. Good eye contact. Appropriate mood and affect. Labs: CBC, BMP 01/25/17 05:35 01/25/17 05:35 Discharge Summary Reason For Visit: ACUTE CONGESTIVE HEART FAILURE Current Active Problems Acute congestive heart failure (Acute) Acute on chronic diastolic (congestive) heart failure (Acute) Chest pain (Acute) Left bundle branch block (Acute) Hospital Course: This is an 86 year-old male with PMHx of HTN, HLD, diastolic heart failure, afib on Eliquis, tissue AVR (7-8 years ago, [facility]) and chronic LBBB, who presented to the ED today with difficulty breathing at night x 1- 2 days. He reports to this provider he has awoken at night with a dry cough and a feeling of SOB. He denies [place], chest pain, pressure, or palpitations to this provider. He does endorse mild b/l lower extremity edema. He states he weighs himself daily and his weight has not deviated from 210-211 pounds. He states he is compliant with his medications. He exercises daily. He denies fever, sweats, chills. He denies n/v/d/c. Plan: Acute on chronic diastolic heart failure --01/23 Echo: LV function mildly reduced EF 39%, cannot exclude RWMA; RV normal; LA severely dilated; bioprosthetic aortic valve well-seated, gradient elevated but without change since 01/2016; moderate aortic root dilitation --Lasix po 60mg po daily Community acquired pneumonia --01/23 CXR: segmental RLL consolidation --afebrile, WBC trending down 17.5-->13.2k --continue ceftriaxone (day #3) and azithromycin (day #3) Hypertension --BP stable, continue metoprolol, quinapril Hyperlipidemia --continue Lipitor Coronary artery disease --continue metoprolol, Lipitor Permanent afib --rate well-controlled --continue metoprolol --continue Eliquis Instructed the patient to please follow-up with pcp, and cardiology within 2-3 days. Please return to the ED with new, persistent, or worsening symptoms. Condition: Improved - Instructions Diet, Activity, Other Instructions: Please return to the ED with new, persistent, or worsening symptoms. Please follow-up with providers as indicated. Please follow-up with your pcp within 2-3 days to have your thyroid function tested. Continue to take 60mg Lasix orally daily and follow-up with Dr. Oneal (cardiology ) in his office within 1 week. Referrals: Melvi Rizo MD [Primary Care Provider] - (Please follow-up with your pcp within 2-3 days to have your thyroid function testing redone. ) Arslan Oneal MD [Staff Physician] - (Please follow-up with cardiology within 1 week. ) Disposition: HOME - Home Medications Comprehensive Discharge Medication List: Ambulatory Orders Quinapril HCl [Accupril -] 20 mg PO DAILY #30 tablet 02/07/16 Apixaban [Eliquis] 5 mg PO BID #60 tab 01/25/17 Cefuroxime Axetil [Ceftin -] 500 mg PO Q12H #14 tablet 01/25/17 Furosemide [Lasix -] 40 mg PO BID #60 tablet 01/25/17 Metoprolol Succinate [Toprol XL -] 25 mg PO DAILY #30 tab.sr.24h 01/25/17 This patient is new to me today: Yes Date on this admission: 01/25/17 Emergency Visit: Yes ED Registration Date: 01/23/17 Care time: The patient presented to the Emergency Department on the above date and was hospitalized for further evaluation of their emergent condition. Critical Care patient: No - Discharge Referral Referred to [facility] No
--- NOTE | 2017-01-25 11:49 | PN ---
Progress Note, Physician Chief Complaint: Events noted Not in distress History of Present Illness: Patient was seen and examined. Awake and alert. Chart was reviewed Denies chest pain, SOB or palpitations Awaiting to go home - Current Medication List Current Medications: Active Medications Apixaban (Eliquis -) 5 mg PO BID [facility] Last Admin: 01/25/17 09:32 Dose: Not Given Atorvastatin Calcium (Lipitor -) 10 mg PO HS [facility] Last Admin: 01/24/17 21:39 Dose: 10 mg Furosemide (Lasix Injection -) 40 mg IVPUSH BID@0600,1400 [facility] Last Admin: 01/25/17 06:26 Dose: 40 mg Azithromycin (Zithromax 500mg Ivpb (Pre-Docked)) 250 mls @ 250 mls/hr IVPB DAILY [facility] Last Admin: 01/25/17 09:33 Dose: Not Given Ceftriaxone Sodium (Rocephin 1gm Ivpb (Pre-Docked)) 50 mls @ 100 mls/hr IVPB DAILY [facility] Last Admin: 01/25/17 09:32 Dose: Not Given Metoprolol Succinate (Toprol Xl -) 25 mg PO DAILY [facility] Last Admin: 01/25/17 09:32 Dose: Not Given Quinapril HCl (Accupril -) 20 mg PO DAILY [facility] Last Admin: 01/25/17 09:32 Dose: Not Given - Objective Vital Signs: Vital Signs Temperature 97.8 F 01/25/17 06:00 Pulse Rate 55 L 01/25/17 06:00 Respiratory Rate 20 01/25/17 06:00 Blood Pressure 138/80 01/25/17 06:00 O2 Sat by Pulse Oximetry (%) 95 01/24/17 21:00 Neck: Yes: Supple Cardiovascular: Yes: Pulse Irregular, Murmur (2/6 LISA), S1, S2 Respiratory: Yes: Diminished Gastrointestinal: Yes: Normal Bowel Sounds, Soft. No: Tenderness Edema: No Additional Findings/Remarks: - Review of Systems Constitutional: denies: Chills, Fever Cardiovascular: denies: Shortness of Breath. denies: Chest Pain, Palpitations Respiratory: denies: SOB, SOB on Exertion. denies: Cough, Hemoptysis, Orthopnea , PND, Wheezing Gastrointestinal: denies: Abdominal Pain, Constipation, Diarrhea, Melena, Nausea , Rectal Bleeding, Vomiting Genitourinary: denies: Dysuria Musculoskeletal: denies: Joint Pain Neurological: denies: Unsteady Gait, Weakness. denies: Dizziness, Headache, Numbness, Seizure, Syncope Labs: CBC, BMP 01/25/17 05:35 01/25/17 05:35 INR, PTT INR 1.34 (0.82-1.09) H 01/23/17 09:48 Problem List - Problems (1) Acute congestive heart failure Code(s): I50.9 - HEART FAILURE, UNSPECIFIED Qualifiers: Congestive heart failure type: combined Qualified Code(s): I50.41 - Acute combined systolic (congestive) and diastolic (congestive) heart failure (2) Acute on chronic diastolic (congestive) heart failure Code(s): I50.33 - ACUTE ON CHRONIC DIASTOLIC (CONGESTIVE) HEART FAILURE (3) Acute respiratory failure with hypoxia Code(s): J96.01 - ACUTE RESPIRATORY FAILURE WITH HYPOXIA (4) Atrial fibrillation Code(s): I48.91 - UNSPECIFIED ATRIAL FIBRILLATION Qualifiers: Atrial fibrillation type: persistent Qualified Code(s): I48.1 - Persistent atrial fibrillation (5) Coronary artery disease Code(s): I25.10 - ATHSCL HEART DISEASE OF [place] CORONARY ARTERY W/O ANG PCTRS Qualifiers: Coronary Disease-Associated Artery/Lesion type: [place] artery [place] vs. transplanted heart: [place] heart Associated angina: without angina Qualified Code(s): I25.10 - Atherosclerotic heart disease of [place] coronary artery without angina pectoris (6) H/O myocardial infarction, greater than 8 weeks Code(s): I25.2 - OLD MYOCARDIAL INFARCTION (7) Hospital acquired PNA Code(s): J18.9 - PNEUMONIA, UNSPECIFIED ORGANISM (8) Hyperlipidemia Code(s): E78.5 - HYPERLIPIDEMIA, UNSPECIFIED Qualifiers: Hyperlipidemia type: pure hypercholesterolemia Qualified Code(s): E78.00 - Pure hypercholesterolemia, unspecified; E78.0 - Pure hypercholesterolemia (9) Hypertension Code(s): I10 - ESSENTIAL (PRIMARY) HYPERTENSION Qualifiers: Hypertension type: essential hypertension Qualified Code(s): I10 - Essential (primary) hypertension (10) Hypertensive cardiovascular disease Code(s): I11.9 - HYPERTENSIVE HEART DISEASE WITHOUT HEART FAILURE Qualifiers: Heart failure presence: with heart failure Qualified Code(s): I11.0 - Hypertensive heart disease with heart failure (11) S/P CABG x 2 Code(s): Z95.1 - PRESENCE OF AORTOCORONARY BYPASS GRAFT (12) S/P aortic valve replacement with bioprosthetic valve Code(s): Z95.4 - PRESENCE OF OTHER HEART-VALVE REPLACEMENT (13) Shortness of breath Code(s): R06.02 - SHORTNESS OF BREATH Assessment/Plan 1. Acute hypoxic respiratory failure - 2. Acute on chronic LV systolic/diastolic failure, class II NYHA classification LV failure 3. 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 CAD post ND/CABG angina pectoris 5. Persistent AF with periods of slow ventricular response asymptomatic on NOAC - off label use (presence of AVR) 6. HTN/HCVD 7. Hyperlipidemia 8. RLL pneumonia PLAN: 1. Empiric antibiotic was given during hospitalization 2. Discharge home on PO Lasix 60 mg once a day 3. Continue Eliquis 5 mg bid 4. Continue Accupril and Toprol XL 5. Continue Lipitor 6. Patient will follow up in the office for further plans regarding aortic valve disease. Possibility of transcatheter valve (TAVR within existing porcine valve) replacement (re-op) was entertained Further plans are to follow. Discussed with his family by bedside Arslan Oneal MD
[2017-01-25 13:21] VITALS: BP 150/85; PULSE 64; TEMP 98.4
== END 2017-01-25 12:25 | disposition home or self-care (01) | DRG 291 ==
LOC: JER 05:56 → JERBED 07:09 → J4W 17:35
PROVIDERS: ADMIT Internal Medicine; ATTEND Registered Nurse
PROC: 3E0F7GC Introduction of Other Therapeutic Substance into Respiratory Tract, Via Natural or Artificial Opening (ICD-10-PCS; principal; 2017-01-23)
DX: I11.0 Hypertensive heart disease with heart failure (principal); J18.9 Pneumonia, unspecified organism; J96.01 Acute respiratory failure with hypoxia; I50.33 Acute on chronic diastolic (congestive) heart failure; E78.5 Hyperlipidemia, unspecified; I48.2 Chronic atrial fibrillation; Z79.01 Long term (current) use of anticoagulants; Z95.2 Presence of prosthetic heart valve; I44.7 Left bundle-branch block, unspecified; R07.9 Chest pain, unspecified; I25.119 Atherosclerotic heart disease of native coronary artery with unspecified angina pectoris; Z95.1 Presence of aortocoronary bypass graft; I25.2 Old myocardial infarction
CPT/HCPCS: 36415; 71010-TC; 80053; 80061; 81003; 82550; 82803; 83605; 83721; 83735; 83880; 84100; 84443; 84484; 85025; 85610; 85730; 87040; 87086; 93005; 93010; 93306-TC; 97116-GP; 97161-GP; 99285-25